=== PATIENT | female | born 1950 | race Caucasian/White ===

== ENCOUNTER 2024-04-07 13:20 | Inpatient (IN) | payer MEDICARE, OTHER ==
[~2024-04-07] VITALS: Ht 160 cm; Wt 65.9 kg
[2024-04-07 13:43] LABS: BASO % 0.4 % (0.0-2.0); EOS # 0.3 K/mm3 (0.0-0.7); EOS % 3.5 % (0.0-4.0); GRAN # 4.9 K/mm3 (1.4-6.5); HEMATOCRIT 40.2 % (37.0-47.0); HEMOGLOBIN 13.2 g/dl (12.5-16.0); LYMPH # 1.4 K/mm3 (1.2-3.4); LYMPH % 19.3 % (20.0-51.0); MEAN CELL VOLUME 100 fl (80.0-100.0); MEAN CORPUSCULAR HEMOGLOBIN 33 pg (27-31); MEAN CORPUSCULAR HGB CONC 33 g/dl (33.0-37.0); MEAN PLATELET VOLUME 9.7 fl (7.4-10.4); MONO # 0.8 K/mm3 (0.1-0.6); MONO % 10.5 % (1.7-9.3); PLATELET COUNT 233 K/mm3 (130-400); RED BLOOD COUNT 4.02 M/mm3 (4.10-5.30); REDCELL DISTRIBUTION WIDTH-CV 12.1 % (11.5-14.5)
[2024-04-07 13:59] LABS: ALBUMIN 3.6 g/dL (3.4-4.8); BILIRUBIN,TOTAL 0.5 mg/dL (0.2-1.2); CREATININE, serum 0.91 mg/dL (0.57-1.11)
[2024-04-07 14:12] LABS: PROTHROMBIN TIME 10.7 SECONDS (9.7-12.8)
[2024-04-07] MEDS ORDERED: Iohexol 300 - 100 ML VIAL IV ONE (14:39)
[2024-04-07] MEDS ORDERED: NS 100 ML IV ONE (14:40)
[2024-04-07 14:55] LABS: COLLECTION METHOD CATHETER; URINE APPEARANCE Clear (CLEAR/HAZY); URINE COLOR YELLOW (YELLOW)
[2024-04-07 14:56] LABS: URINE BLOOD Negative (NEGATIVE); URINE GLUCOSE Negative (NEGATIVE); URINE KETONE Negative (NEGATIVE); URINE NITRATE Negative (NEGATIVE); URINE PROTEIN(semi-quant) Negative (NEGATIVE); URINE UROBILINOGEN 0.2 E.U/dL (0.2-1.0)
[2024-04-07] MEDS ORDERED: Ondansetron 4 MG/2 ML VIAL IV ONE (15:30)
[2024-04-07] MEDS ORDERED: Morphine 4 MG/ML VIAL IV ONE (15:30)
[2024-04-07] MEDS ORDERED: TOPROL XL 50MG50 MG PO (15:38)
[2024-04-07] MEDS ORDERED: CYMBALTA 30MG30 MG PO (15:38)
[2024-04-07] MEDS ORDERED: ZOCOR 20MG20 MG PO (15:38)
[2024-04-07] MEDS ORDERED: PROTONIX 40MG T40 MG PO (15:38)
[2024-04-07] MEDS ORDERED: ATARAX 25MG25 MG/TAB PO (15:39)
[2024-04-07] MEDS ORDERED: VITAMIN E 400 U4001 PO (15:39)
[2024-04-07] MEDS ORDERED: CARAFATE 1GM1 G PO (15:39)
[2024-04-07] MEDS ORDERED: NATURAL MAGNES200 MG PO (15:40)
[2024-04-07] MEDS ORDERED: CALTRATE-600 W600 MG PO (15:40)
[2024-04-07] MEDS ORDERED: VITAMIND3 5000 PO (15:40)
[2024-04-07] MEDS ORDERED: EYE VITAMIN PO (15:41)
[2024-04-07] MEDS ORDERED: D5 1/2 NS 1,000 ML IV SCH (16:00)
[2024-04-07] MEDS ORDERED: Morphine 4 MG/ML VIAL IV PRN (16:00)
[2024-04-07] MEDS ORDERED: Naloxone 0.4 MG/ML VIAL IV PRN (16:00)
[2024-04-07] MEDS ORDERED: Ondansetron 4 MG/2 ML VIAL IV PRN (16:00)
[2024-04-07] MEDS ORDERED: oxyCODONE 5 MG TAB PO PRN (16:00)
[2024-04-07] MEDS ORDERED: Sucralfate 1 G TAB PO SCH (16:30)
[2024-04-07] MEDS ORDERED: Acetaminophen 500 MG TAB PO SCH (16:45)
[2024-04-07] MEDS ORDERED: hydrALAZINE 20 MG/ML 1 ML VIAL IV PRN (16:45)
--- NOTE | 2024-04-07 16:50 | NUR ---
PATIENT ADMITED INTO ROOM 344 FROM ER WITH RIGHT HIP FX. PATIENT TRANSFERED VIA SLIDE BOARD, ON BEDREST. ER GAVE PAIN & ANTINAUSEA MEDS BEFORE TRANSFER TO FLOOR. TEDS & SCD'S TO LLE. SCHWARTZ TO DD WITH MOD AMOUNTS OF CLEAR YELLOW URINE. LEFT AC IV TO INT. NO C/O N/V. HEAD TO TOE ASSESSMENT COMPLETE. NOTED A FEW SMALL ABRASION/BRUISES FROM FALL, SEE SHIFT ASSESSMENT. PATIENT'S AT BEDSIDE. ORIENTED TO ROOM. CALL LIGHT IN REACH. BED ALARM ON.
[2024-04-07] MEDS ORDERED: NS 1,000 ML IV SCH (17:30)
--- NOTE | 2024-04-07 17:35 | NUR ---
ORTHO AT BEDSIDE, SEE ORDERS/NOTES. PLAN IS FOR SURGERY TOMORROW AM IF CLEARED BY HOSPITALIST.
[2024-04-07 19:15] VITALS: BP 123/78; PULSE 80; TEMP 97.7
--- NOTE | 2024-04-07 20:15 | NUR ---
Patient assessed at this time, see shift assessment, A/Ox4, on oxygen at 1LPM via nasal cannula, still with IV infusing well on left forearm NS at 60cc/hr, MIGUEL's and SCD's on, reports minimal pain at this time and denies the need for pain meds at this time, NPO postmidnight instructed, denies further needs, call light and personal items within reach, will continue to monitor.
[2024-04-07 21:00] VITALS: BP_SYST 123
[2024-04-07] MEDS ORDERED: Docusate Sodium 100 MG CAP PO SCH (21:00)
[2024-04-07] MEDS ORDERED: Atorvastatin 10 MG TAB PO SCH (21:00)
--- NOTE | 2024-04-07 22:03 | NUR ---
Patient reports pain to right hip, PS of 7/10, medicated with oxycodone, denies further needs, will continue to monitor.
[2024-04-07 23:11] VITALS: BP 111/71; PULSE 74; TEMP 98
[2024-04-08] VITALS (17 sets, daily range): BP systolic 107–145; BP diastolic 40–83; PULSE 77–98; TEMP 97.1–98.5
[2024-04-08] MEDS ORDERED: LR 1,000 ML IV SCH (05:00)
--- NOTE | 2024-04-08 06:05 | NUR ---
Patient reports pain to her right hip, PS of 6/10, repositioned patient to her left side, medicated with IV morphine, NPO maintained, will continue to monitor.
[2024-04-08] MEDS ORDERED: fentaNYL 50 MCG/ML 2 ML VIAL ONE (07:28)
[2024-04-08] MEDS ORDERED: Lidocaine PF 2% (20 MG/ML) 5 ML VIAL ONE (07:30)
--- NOTE | 2024-04-08 07:30 | NUR ---
PATIENT OFF FLOOR AND IS NOW IN THE OR
[2024-04-08] MEDS ORDERED: dexAMETHasone 10 MG/ML VIAL ONE (07:31)
[2024-04-08] MEDS ORDERED: Ondansetron 4 MG/2 ML VIAL ONE (07:31)
[2024-04-08] MEDS ORDERED: NS 10 ML IV ONE (07:31)
[2024-04-08] MEDS ORDERED: Glycopyrrolate 0.2 MG/ML 1 ML VIAL ONE (07:31)
[2024-04-08] MEDS ORDERED: Lidocaine 1% w EPI (1:100,000) 20 ML Multi-Dose VIAL IJ ONE ×2 (08:20)
[2024-04-08] MEDS ORDERED: ePHEDrine 50 MG/ML VIAL ONE (08:25)
[2024-04-08] MEDS ORDERED: fentaNYL 50 MCG/ML 1 ML SYRINGE/VIAL [PACU/SDC ONLY] IV PRN (08:30)
[2024-04-08] MEDS ORDERED: HYDROmorphone 1 MG/1 ML SYRINGE [PACU/SDC ONLY] IV PRN (08:30)
[2024-04-08] MEDS ORDERED: droPERidol 2.5 MG/ML 2 ML VIAL IV PRN (08:30)
[2024-04-08] MEDS ORDERED: hydrALAZINE 20 MG/ML 1 ML VIAL IV PRN (08:30)
[2024-04-08] MEDS ORDERED: Ondansetron 4 MG/2 ML VIAL IV PRN (08:30)
[2024-04-08] MEDS ORDERED: Topical Skin Adhesive 1 EACH (1 ML) TOP ONE (08:51)
[2024-04-08] MEDS ORDERED: oxyCODONE 5 MG TAB PO PRN (09:00)
[2024-04-08] MEDS ORDERED: Polyethylene Glycol 3350 17 GM PDS PO SCH (09:00)
[2024-04-08] MEDS ORDERED: Magnes Hydrox (MOM) 80 MG/ML 30 ML CUP PO PRN (09:00)
[2024-04-08] MEDS ORDERED: Naloxone 0.4 MG/ML VIAL IV PRN (09:00)
[2024-04-08] MEDS ORDERED: DULoxetine 30 MG CAP PO SCH (09:00)
--- NOTE | 2024-04-08 09:45 | NUR ---
PATIENT BACK IN ROOM FROM OR. ORIENTED BUT VERY DROWSY. VSS. NO C/O PAIN OR NAUSEA. RIGHT HIP DSG IS CD&I WITH GAUZE & TEGADERM. TEDS & SCD'S TO BLE. ICE PACK TO RLE. SCHWARTZ TO DD WITH SMALL AMOUNTS OF CLEAR YELLOW URINE. IV FLUIDS INFUSING INTO LEFT AC IV. LIQUIDS AT BEDSIDE. HEAD TO TOE ASSESSMENT COMPLETE. AT BEDSIDE. PATIENT SLEEPING WITH NO OTHER NEEDS. CALL LIGHT IN REACH. BED ALARM ON.
--- NOTE | 2024-04-08 15:21 | NUR ---
SW met with patient to complete intake. Patient provides she resides in [facility] with spouse Dre Reid [phone] whom she appointed as DPOA/HC during intake. DPOA/HC documentation presented, reviewed, completed and witnessed for signature. Original document placed in patient's chart and copies provied to patient. Patient provides she is independent wi AdLs, did not utilize DME prior to hospitalization and does not utilize any home health services at this time. PCP is Dr. Thibodeaux, and pharmacy is [facility]. Patient provides she plans to return to her home upon DC. MARQUES will continue to follow. Discharge plan: home
[2024-04-08] MEDS ORDERED: ceFAZolin 1 G in Water For Injection,Sterile 10 ML IV SCH (19:30)
--- NOTE | 2024-04-08 19:51 | NUR ---
Patient assessed at this time, see shift assessment, reports pain is minimal, A/Ox4, dressing to right hip CDI, still with IV infusing well on left forearm, borges to dependent drainage, MIGUEL's and SCD's on, denies further needs, call light and personal items within reach, will continue to monitor.
[2024-04-08] MEDS ORDERED: Sennosides/Docusate 8.6-50 MG TAB PO SCH (21:00)
[2024-04-09] VITALS (13 sets, daily range): BP systolic 116–168; BP diastolic 72–78; PULSE 63–90; TEMP 97.7–98.2
--- NOTE | 2024-04-09 00:24 | NUR ---
Patient resting in bed, eyes closed, looks comfortable, respirations even and unlabored.
--- NOTE | 2024-04-09 02:07 | NUR ---
Called Shakeel, the DEBUG TECHNICIAN and made him aware that patient is eating and drinking fine, received an order to INT at this time.
--- NOTE | 2024-04-09 03:21 | NUR ---
Patient called with complaints of pain to right hip, medicated with oxycodone.
[2024-04-09 07:15] LABS: CALCIUM 8.5 mg/dL (8.4-10.2); CREATININE, serum 0.78 mg/dL (0.57-1.11); POTASSIUM 4.1 mEq/L (3.5-4.5)
[2024-04-09 07:29] LABS: BASO % 0.1 % (0.0-2.0); EOS % 0.1 % (0.0-4.0); GRAN # 13.4 K/mm3 (1.4-6.5); GRAN % 86.1 % (42.2-75.2); HEMOGLOBIN 11.6 g/dl (12.5-16.0); LYMPH % 6.4 % (20.0-51.0); MEAN CORPUSCULAR HEMOGLOBIN 33 pg (27-31); MEAN CORPUSCULAR HGB CONC 35 g/dl (33.0-37.0); MEAN PLATELET VOLUME 9.4 fl (7.4-10.4); MONO # 1.1 K/mm3 (0.1-0.6); MONO % 6.8 % (1.7-9.3); PLATELET COUNT 183 K/mm3 (130-400); RED BLOOD COUNT 3.53 M/mm3 (4.10-5.30); REDCELL DISTRIBUTION WIDTH-CV 11.9 % (11.5-14.5)
[2024-04-09 07:33] LABS: HEMATOCRIT 33.6 % (37.0-47.0); MEAN CELL VOLUME 95 fl (80.0-100.0)
--- NOTE | 2024-04-09 08:00 | NUR ---
Pt. sitting up in bed. Pt. is A&OX3, assessment complete. INT to lt. forearm patent. Dressing to rt. hip CDI. Pt. reports pain at a 6 on pain scale, giving pain meds. Pt. denies further needs, call light within reach.
[2024-04-09] MEDS ORDERED: Calcium Carbonate 500 MG TAB PO SCH (09:00)
[2024-04-09] MEDS ORDERED: Ascorbic Acid 500 MG TAB PO SCH (09:00)
--- NOTE | 2024-04-09 09:02 | NUR ---
SW attended clinical rounds with team. Attending Dr. Mercado stating patient is agreeable to [facility] referral. MARQUES called Christi, Director of I[facility] to make referral. Discharge plan: [facility] referral
[2024-04-09] MEDS ORDERED: NORCO 325 MG-101 TAB PO (10:36)
[2024-04-09] MEDS ORDERED: VALIUM 5MG T5 MG/TAB PO (10:37)
[2024-04-09] MEDS ORDERED: Multivitamin TAB PO SCH (12:00)
--- NOTE | 2024-04-09 21:34 | NUR ---
PT IN BED, REPOSITIONED UP IN BED WITH 2 STAFF. HS MEDS GIVEN INCLUDING OXYCODONE 5MG PO FOR RT RIB PAIN. DRSG'S TO RT HIP D/I, ICE PACK REPLACED. SCDS AND MIGUEL HOSE ON. HAS INT TO LAC, FLUSHES WELL. IS ALERT AND ORIENTED X4. HAS SMALL ABRASION TO LFA. SCHWARTZ TO BSD WITH YELLOW URINE. BED ALARM ON.
[2024-04-10 00:11] VITALS: BP_SYST 131
--- NOTE | 2024-04-10 03:43 | NUR ---
PT AWAKE, MEDICATED WITH OXYCODONE 5MG PO FOR RT HIP/RIB PAIN. REMAINS ON OXYGEN AT 2L/NC.
[2024-04-10 04:05] VITALS: BP 145/74; PULSE 68; TEMP 97.5
[2024-04-10 04:25] VITALS: BP_SYST 145
[2024-04-10 07:06] LABS: BASO # 0.1 K/mm3 (0.0-0.2); BASO % 0.5 % (0.0-2.0); EOS # 0.4 K/mm3 (0.0-0.7); EOS % 3.7 % (0.0-4.0); GRAN # 7.2 K/mm3 (1.4-6.5); GRAN % 67.7 % (42.2-75.2); HEMOGLOBIN 10.8 g/dl (12.5-16.0); MEAN CELL VOLUME 99 fl (80.0-100.0); MEAN CORPUSCULAR HEMOGLOBIN 33 pg (27-31); MEAN CORPUSCULAR HGB CONC 33 g/dl (33.0-37.0); MONO # 0.9 K/mm3 (0.1-0.6); MONO % 8.5 % (1.7-9.3); PLATELET COUNT 182 K/mm3 (130-400); RED BLOOD COUNT 3.31 M/mm3 (4.10-5.30); REDCELL DISTRIBUTION WIDTH-CV 12.2 % (11.5-14.5)
[2024-04-10 07:07] LABS: HEMATOCRIT 32.9 % (37.0-47.0)
[2024-04-10 07:26] VITALS: BP 140/70; PULSE 71; TEMP 97.6
[2024-04-10 07:28] LABS: CALCIUM 8.3 mg/dL (8.4-10.2); POTASSIUM 3.8 mEq/L (3.5-4.5)
[2024-04-10 07:42] LABS: CREATININE, serum 0.74 mg/dL (0.57-1.11)
--- NOTE | 2024-04-10 07:51 | NUR ---
Pt. sitting up in bed. Pt. is A&OX3, assessment complete. INT to lt. ac patent. Pt. reports pain to rt. ribs at a 6 on pain scale, gave pain meds. Dressing to rt. hip CDI. Pt. denies further needs, call light within reach.
[2024-04-10] MEDS ORDERED: ASPIRIN 81M81 MG/TA2 PO (09:01)
[2024-04-10 09:02] VITALS: BP_SYST 140
[2024-04-10] MEDS ORDERED: ROXICODONE 55 MG/TAB PO (09:02)
[2024-04-10] MEDS ORDERED: TYLENOL 500MG500 MG PO (09:02)
[2024-04-10] MEDS ORDERED: SENEXON-S 50-81 EACH PO (09:04)
[2024-04-10] MEDS ORDERED: LEADER CLE17 GM/Dose PO (09:04)
[2024-04-10] MEDS ORDERED: DUO-KAPS1 CAP PO (09:05)
[2024-04-10] MEDS ORDERED: VITAMIN C500 MG PO (09:05)
--- NOTE | 2024-04-10 10:09 | NUR ---
Pt. ready to discharge to I[facility]. INT discontinued from lt. ac. Pt. ambulated with 1 assist and walker to room 334.
--- NOTE | 2024-04-10 10:09 | NUR ---
SW attended clinical rounds with team. Patient stable for discharge to [facility] today. SW spoke with Sharonda with I[facility] to coordinate transfer. Discharge plan: [facility]
== END 2024-04-10 10:11 | DRG 481 ==
LOC: COL.ER 13:20 → SURG 15:52
PROVIDERS: Emergency Medicine; Orthopaedic Surgery; ADMIT Internal Medicine
PROC: 0QS634Z Reposition Right Upper Femur with Internal Fixation Device, Percutaneous Approach (ICD-10-PCS; principal; 2024-04-08 08:30)
DX: S72.011A Unspecified intracapsular fracture of right femur, initial encounter for closed fracture (principal); J98.11 Atelectasis; F41.9 Anxiety disorder, unspecified; F32.A Depression, unspecified; E78.5 Hyperlipidemia, unspecified; W01.0XXA Fall on same level from slipping, tripping and stumbling without subsequent striking against object, initial encounter; R91.8 Other nonspecific abnormal finding of lung field; D72.829 Elevated white blood cell count, unspecified; I10 Essential (primary) hypertension; Z90.49 Acquired absence of other specified parts of digestive tract; Z90.710 Acquired absence of both cervix and uterus; Z79.899 Other long term (current) drug therapy; Y92.89 Other specified places as the place of occurrence of the external cause; Y93.89 Activity, other specified; Z87.891 Personal history of nicotine dependence; Z91.040 Latex allergy status; Z87.19 Personal history of other diseases of the digestive system
CPT/HCPCS: A9284; C1713; J0690; J1100; J2270; J2405; J2704; J3010; J7030; Q9967

== ENCOUNTER 2024-04-10 09:12 | Inpatient (IN) | payer MEDICARE, OTHER ==
[~2024-04-10] VITALS: Ht 160 cm; Wt 60.1 kg
[~2024-04-10 09:12] MED LIST: ASPIRIN 81M81 MG/TA2 PO; ATARAX 25MG25 MG/TAB PO; CALTRATE-600 W600 MG PO; CARAFATE 1GM1 G PO; CYMBALTA 30MG30 MG PO; DUO-KAPS1 CAP PO; EYE VITAMIN PO; LEADER CLE17 GM/Dose PO; NATURAL MAGNES200 MG PO; NORCO 325 MG-101 TAB PO; PROTONIX 40MG T40 MG PO; ROXICODONE 55 MG/TAB PO; SENEXON-S 50-81 EACH PO; TOPROL XL 50MG50 MG PO; TYLENOL 500MG500 MG PO; VALIUM 5MG T5 MG/TAB PO; VITAMIN C500 MG PO; VITAMIN E 400 U4001 PO; VITAMIND3 5000 PO; ZOCOR 20MG20 MG PO
[2024-04-10] MEDS ORDERED: Acetaminophen 325 MG TAB PO PRN (10:30)
[2024-04-10] MEDS ORDERED: Docusate Sodium 100 MG CAP PO PRN (10:30)
[2024-04-10] MEDS ORDERED: Naloxone 0.4 MG/ML VIAL IV PRN (10:30)
[2024-04-10] MEDS ORDERED: oxyCODONE 5 MG TAB PO PRN (10:30)
[2024-04-10] MEDS ORDERED: Polyethylene Glycol 3350 17 GM PDS PO PRN (10:30)
[2024-04-10] MEDS ORDERED: Sennosides/Docusate 8.6-50 MG TAB PO PRN (10:30)
[2024-04-10] MEDS ORDERED: Lidocaine 4% Topical Patch TP SCH (10:30)
--- NOTE | 2024-04-10 11:33 | NUR ---
Pt. transfered from surgical unit. Pt. able to ambulate from surgical unit to room. Pt. is A&OX3, assessment complete. Pt. denies pain, call light within reach.
[2024-04-10] MEDS ORDERED: Sucralfate 1 G TAB PO SCH (11:54)
[2024-04-10] MEDS ORDERED: Multivitamin TAB PO SCH (12:00)
[2024-04-10] MEDS ORDERED: Acetaminophen 500 MG TAB PO PRN (12:00)
[2024-04-10 17:00] VITALS: BP_SYST 161
[2024-04-10 17:23] VITALS: BP 161/80; PULSE 64; TEMP 97.9
[2024-04-10 19:25] VITALS: BP_SYST 161
--- NOTE | 2024-04-10 19:27 | NUR ---
BEDSIDE SHIFT REPORT RECEIVED. SHIFT ASSESSMENT COMPLETED AT THIS TIME. PT REPORTS 02/05 PAIN. PRN TYELNOL ADMINISTERED AT THIS TIME ALONG WITH SCHEDUELED EVENING MEDICATIONS WITHOUT COMPLICATIONS. PT DENIES NAUSEA AND SOB AT THIS TIME. PT A&OX4. FALL PRECAUTIONS IN PLACE. CALL LIGHT WITHIN REACH. NO FURTHER NEEDS AT THIS TIME.
[2024-04-10] MEDS ORDERED: Calcium Carb/Vit D3 500 mg-200 Units TAB PO SCH (21:00)
[2024-04-10] MEDS ORDERED: Simvastatin 20 MG **** subs to Atorvastatin 10 MG PO SCH (21:00)
[2024-04-10] MEDS ORDERED: Atorvastatin 10 MG TAB PO SCH (21:00)
[2024-04-10] MEDS ORDERED: Sennosides/Docusate 8.6-50 MG TAB PO SCH (21:00)
--- NOTE | 2024-04-10 21:56 | NUR ---
PT FOUND ON RA SATTING 80-83%. PT SHALLOW BREATHING. RT APPLIED 4L NC AND EDUCATED PT ON DEEP BREATHING. PT NOW SATTING 94% ON 4L NC. RN NOTIFIED.
--- NOTE | 2024-04-10 21:58 | NUR ---
THIS NURSE NOTIFIED BY RT THAT PATIENT WAS FOUND SATING AT 80%. RT APPLIED 4L OF OXYGEN AT SATS WERE NOW 94%. THIS NURSE ASSESSED PT AND PT VOICED 7/10 PAIN. PRN ROXICODONE ADMINISTERED AT THIS TIME. PT STIL ON 4L/NC. NO FURTHER NEEDS AT THIS TIME.
--- NOTE | 2024-04-10 22:53 | NUR ---
PT CALLED AND REPORTS 7/10 PAIN STILL LOCATED IN THE RIGHT HIP AND RIBS. ANOTHER DOSE OF PRN ROXICODONE ADMINISTERED. TITRATED O2 TO 2L/NC AND PT IS SATING AT 97%. WILL CONINUE TO MONITOR. NO FURTHER NEEDS AT THIS TIME.
[2024-04-11 01:05] VITALS: BP_SYST 161
[2024-04-11 05:26] VITALS: BP 169/82; PULSE 71; TEMP 98
[2024-04-11] MEDS ORDERED: Magnesium Oxide 400 MG TAB PO SCH (09:00)
[2024-04-11] MEDS ORDERED: Polyethylene Glycol 3350 17 GM PDS PO SCH (09:00)
[2024-04-11] MEDS ORDERED: Ascorbic Acid 500 MG TAB PO SCH (09:00)
[2024-04-11] MEDS ORDERED: Cholecalciferol (Vit D3) 5000 Units Capsule PO SCH (09:00)
[2024-04-11] MEDS ORDERED: D-Alpha Tocopheryl (Vitamin E) 400 Units (180 mg) CAP PO SCH (09:00)
[2024-04-11] MEDS ORDERED: DULoxetine 30 MG CAP PO SCH (09:00)
[2024-04-11 10:02] VITALS: BP_SYST 169
--- NOTE | 2024-04-11 10:07 | NUR ---
PT ASSESSMENT COMPLETED EARLIER TODAY. SHE WAS SITTING IN THE CHAIR EATING HER BREAKFAST. MEDICATIONS ADMINISTERED PER EMAR. CALL LIGHT WITHIN REACH. NO OTHER CONCERNS AT THIS TIME. ALL OTHER NEEDS MET
--- NOTE | 2024-04-11 12:20 | NUR ---
SW met with patient earlier to complete initial assessment for discharge planning. Patient verified that she lives in [place] with her /BRANDEE Erickson ([phone]). She sees Dr. Jorge Hale as her PCP and uses [facility]. Patient states she has a FWW, quad cane and grab bars at home. She reports that there are 5 steps with rail into house at front door and 2 steps into house at side door. She states there is one step into their garage from the house. SW discussed possible discharge plans including home health or OP therapy. SW will continue to follow for discharge planning. Discharge plan: TBD
[2024-04-11 13:16] VITALS: BP_SYST 169
--- NOTE | 2024-04-11 13:17 | NUR ---
SW met with patient to provide copy of team conference notes and discuss discharge needs. Patient informed that team feels she may be ready for discharge next week with date of discharge set for 04/20. Family meeting scheduled with patient on 04/18 at 1015 and written on white board in room. Medicare.gov list of HH providers left for patient to review. SW will follow up for choice of HH provider. Discharge plan: Home with HH
[2024-04-11 17:20] VITALS: BP_SYST 169
[2024-04-11 18:11] VITALS: BP 176/84; PULSE 90; TEMP 98.1
--- NOTE | 2024-04-11 21:53 | NUR ---
Pt sitting in bed watching a movie upon this nurse's entry to room. A&Ox4. RR even and unlabored. No acute distress noted. Scheduled PM medications and PRN oxycodone administered per pt request. Pt experiencing pain to right hip and right lower back. Shift assessment completed. Dark purple ecchymosis noted to right lower back and scattered on RUE. Pulses present and palpable. Gait is steady w/ use of walker and gait belt. Pt denies any needs or concerns. Call light in reach. Care ongoing.
[2024-04-12 06:14] VITALS: BP 158/77; PULSE 65; TEMP 98.6
[2024-04-12 07:20] VITALS: BP_SYST 158
--- NOTE | 2024-04-12 08:00 | NUR ---
Pt. sitting up in bed. Pt. is finished with breakfast. Pt. assisted to the bathroom with 1 assist, gait belt and walker. Pt. then up to sink go preform oral hygiene. Pt. then to chair. Pt. is A&OX3, assessment complete. Pt. reports pain at a 4 on pain scale, giving Tylenol. Lidocaine patch applied to rt. ribs. Pt. denies further needs, call light within reach.
[2024-04-12 16:45] VITALS: BP 135/80; PULSE 80; TEMP 98
[2024-04-12 19:30] VITALS: BP_SYST 135
--- NOTE | 2024-04-12 20:30 | NUR ---
UPON SHIFT ASSESSMENT, PATIENT WAS IN BED LYING ON LT SIDE WATCHING TV ON HER TABLET. SHE IS AXO X4 AND VS ARE WNL. PATIENT C/O 4/10 PAIN "AND GETTING WORSE." RT HIP INSCISION SITE IS CDI AND DISTAL PULSES, CAP REFILL, SENSATION AND COLOR GOOD-MINIMAL EDEMA. CALL LIGTH WITHIN REACH, BEDALARM ON.
--- NOTE | 2024-04-13 03:04 | NUR ---
PATIENT SLEEPING ON RT SIDE. NO SIGNS OF DISTRESS.
[2024-04-13 05:36] VITALS: BP 138/74; PULSE 70; TEMP 98.1
[2024-04-13 06:38] LABS: BASO % 0.4 % (0.0-2.0); EOS # 0.5 K/mm3 (0.0-0.7); EOS % 4.4 % (0.0-4.0); GRAN # 7.8 K/mm3 (1.4-6.5); GRAN % 71.2 % (42.2-75.2); HEMOGLOBIN 11.5 g/dl (12.5-16.0); LYMPH # 1.6 K/mm3 (1.2-3.4); LYMPH % 14.8 % (20.0-51.0); MEAN CELL VOLUME 98 fl (80.0-100.0); MEAN CORPUSCULAR HEMOGLOBIN 32 pg (27-31); MEAN CORPUSCULAR HGB CONC 33 g/dl (33.0-37.0); MEAN PLATELET VOLUME 9.9 fl (7.4-10.4); MONO # 0.9 K/mm3 (0.1-0.6); MONO % 8.5 % (1.7-9.3); PLATELET COUNT 241 K/mm3 (130-400); RED BLOOD COUNT 3.56 M/mm3 (4.10-5.30); REDCELL DISTRIBUTION WIDTH-CV 11.9 % (11.5-14.5)
[2024-04-13 07:00] VITALS: BP_SYST 138
[2024-04-13 07:08] LABS: CALCIUM 9.2 mg/dL (8.4-10.2); CREATININE, serum 0.77 mg/dL (0.57-1.11); POTASSIUM 4.2 mEq/L (3.5-4.5)
--- NOTE | 2024-04-13 08:00 | NUR ---
PATIENT A&O X4. VSS. PRN PAIN MEDICATION ADMINISTERED FOR C/O PAIN IN R HIP. NO C/O N/V. PATIENT EATING BREAKFAST. PATIENT IS ASSIST X1 WITH GAIT BELT AND WALKER. DRESSING TO R HIP IS CLEAN, DRY, AND INTACT. FALL PRECAUTIONS IN PLACE. SHIFT ASSESSMENT DONE. MORNING MEDICATIONS ADMINISTERED. NO FURTHER NEEDS AT THIS TIME. CALL LIGHT WITHIN REACH.
--- NOTE | 2024-04-13 13:42 | NUR ---
SW met with pt to check-in and see if there were any needs. She only voiced some pain in her hip and ribs which was reported to Dr. Lewis. No further needs. Discharge Plan: re-eval, home 04/20
--- NOTE | 2024-04-13 14:30 | NUR ---
Admission QIM scores were reviewed by the team. Code of 4 chosen for putting on/taking off footwear was determined by team discussion to be the most usual performance before interventions for this patient during the assessment period. Code of 3 chosen for lying to sitting side of bed was determined by team discussion to be the most usual performance before interventions for this patient during the assessment period.--Cely Granger, PD
[2024-04-13 17:01] VITALS: BP 132/80; PULSE 66; TEMP 98
[2024-04-13 19:00] VITALS: BP_SYST 132
[2024-04-14 04:47] VITALS: BP 127/66; PULSE 67; TEMP 97.9
[2024-04-14 06:58] VITALS: BP_SYST 127
--- NOTE | 2024-04-14 08:43 | NUR ---
PT RESTING IN BED, ALERT AND ORIENTEDX4. RATES PAIN 3/10 IN THE RIGHT HIP AND RIBS. REEQUESTED PAIN PILL BEFORE GETTING UP WITH THERAPY. ASSESSED PT. SARAH DRESSING TO RIGHT HIP INTACT WITH TEGADERM. BRUISING AROUND RIGHT RIBS AND HIP. NO OTHER COMPLAINTS AT THIS TIME. CALL LIGHT WITHIN REACH.
[2024-04-14] MEDS ORDERED: Albuterol/Ipratropium 3 MG-0.5 MG/3 ML Neb Soln IH PRN (13:00)
[2024-04-14 17:00] VITALS: BP 134/76; PULSE 78; TEMP 98.2
[2024-04-14 19:03] VITALS: BP_SYST 134
[2024-04-15 05:36] VITALS: BP 124/72; PULSE 55; TEMP 98
[2024-04-15 06:33] VITALS: BP_SYST 124
--- NOTE | 2024-04-15 07:15 | NUR ---
PT RESTING IN BED, ALERT AND ORIENTEDX4. RATES PAIN 3/10 IN THE RIGHT HIP AND RIBS, THIS IS TOLERABLE FOR PT. ASSESSED PT. SOME BRUISING ON RIGHT SIDE. GAVE MORNING MEDS. PUT LIDOCAIN PATCH ON RIGHT RIBS. NO OTHER COMPLAINTS AT THIS TIME. CALL LIGHT WITHIN REACH.
[2024-04-15 17:40] VITALS: BP 168/88; PULSE 79; TEMP 98.6
[2024-04-15 18:43] VITALS: BP_SYST 168
[2024-04-16 05:51] VITALS: BP 125/71; PULSE 72; TEMP 98
[2024-04-16 08:35] VITALS: BP_SYST 125
[2024-04-16 09:25] LABS: COLLECTION METHOD CLEAN CATCH
[2024-04-16 09:33] LABS: PH 5.5 (5.0-8.5); URINE APPEARANCE CLOUDY (CLEAR/HAZY); URINE BLOOD 2+ (NEGATIVE); URINE COLOR YELLOW (YELLOW); URINE GLUCOSE NEGATIVE (NEGATIVE); URINE KETONE NEGATIVE (NEGATIVE); URINE NITRATE NEGATIVE (NEGATIVE); URINE PROTEIN(semi-quant) 1+ (NEGATIVE); URINE UROBILINOGEN 0.2 E.U/dL (0.2-1.0)
[2024-04-16] MEDS ORDERED: Cefuroxime 250 MG TAB PO SCH (12:30)
[2024-04-16 17:12] VITALS: BP 130/59; PULSE 77; TEMP 98.3
--- NOTE | 2024-04-16 19:19 | NUR ---
RECEIVED CHANGE OF SHIFT REPORT FROM DAY SHIFT NURSE. PATIENT RESTING IN BED, NO NEEDS REPORTED AT TIME OF REPORT.
[2024-04-16 19:20] VITALS: BP_SYST 130
--- NOTE | 2024-04-16 20:00 | NUR ---
MOVEMENT TO RLE DUE TO SURGERY. DENIES CHEST PAIN/SHORTNESS OF BREATHE/NAUSEA AT THIS TIME. DENIES PRODUCTIVE COUGH OR NUMBNESS/TINGLING TO EXTREMITIES AT THIS TIME.
[2024-04-17 05:44] VITALS: BP 124/67; PULSE 68; TEMP 98.1
--- NOTE | 2024-04-17 07:15 | NUR ---
CHANGE OF SHIFT REPORT GIVEN TO DAY SHIFT NURSEJUAN.
[2024-04-17 09:31] VITALS: BP_SYST 124
--- NOTE | 2024-04-17 10:51 | NUR ---
PT WAS SITTING IN HER BED, I ORDERED BREAKFAST FOR HER. SHE IS ON THE PHONE WITH HER . SHE STATES THAT SHE HAS "FELT BETTER THAN SHE EVER HAS SINCE SHE HAS ARRIVED IN THE HOSPITAL". ASSESSMENT COMPLETED EARLIER IN THE AM. MEDICATIONS ADMINISTERED PER EMAR. PT STATES THAT HER PAIN IS UNDER CONTROL THIS MORNING. CALL LIGHT WITHIN REACH, NO OTHER COMPLAINTS AT THIS TIME.
--- NOTE | 2024-04-17 10:59 | NUR ---
PATIENT ALERT AND ORIENTED X4. VSS. PATIENT HERE REHAB S/P RIGHT HIP FRACTURE. DRESSING CDI. PATIENT DENIES ANY PAIN THIS AM. PATIENT ON RA. PATIENT IN BED, WAITING ON BREAKFAST. NO FURTHER NEEDS. CALL LIGHT IN REACH. BED ALARM ON.
--- NOTE | 2024-04-17 13:15 | NUR ---
SW met with patient briefly to check in. Patient denies any needs at this time. Family meeting is scheduled for 04/18 at 1015 with discharge planned for 04/20.
--- NOTE | 2024-04-17 13:49 | NUR ---
The Interdisciplinary team discussed making the patient Modified Independent in her room during Huddle. Her current Pack Fall Score is high at 65 as nursing documented. Her Tinetti score was low at 24. She is currently using a walker w/ wheels for mobility & self care & demonstrates good safety awareness. The team feels she is capable of being Modified Independent in her room at this time as she is aware of her deficits/limitations & cognitively able to problem solve her situations.--Cely Granger, PD
[2024-04-17 16:45] VITALS: BP 157/77; PULSE 80; TEMP 97.9
[2024-04-17 19:00] VITALS: BP_SYST 157
--- NOTE | 2024-04-17 22:06 | NUR ---
Patient assessed at this time, see shift assessment, A/Ox4, reports pain to right hip PS of 6/10 and right rib with PS of 5/10, medicated with oxycodone, see emar for details, denies further needs, call light and personal items within reach, will continue to monitor.
[2024-04-18 05:42] VITALS: BP 165/80; PULSE 67; TEMP 97.8
[2024-04-18 06:11] VITALS: BP 131/79
[2024-04-18 07:00] VITALS: BP_SYST 131
--- NOTE | 2024-04-18 08:00 | NUR ---
PATIENT A&O X4. VSS. NO C/O PAIN OR N/V. PATIENT IS INDEPENDENT IN ROOM. R HIP INCISION IS OPEN TO AIR AND EDGES ARE WELL APPROXIMATED. PATIENT EATING BREAKFAST. SHIFT ASSESSMENT COMPLETE AND MORNING MEDICATIONS ADMINISTERED. NO FURTHER NEEDS AT THIS TIME. CALL LIGHT WITHIN REACH.
--- NOTE | 2024-04-18 12:31 | NUR ---
SW attended clincial team conference earlier this morning. Team discussed patient's progress with therapy. Team feels patient is ready for discharge. SW attended family meeting with team, patient, and daughter. Updated patient and family on progress and discussed preparations for discharge on 04/19. Patient will discharge to home with HH and does not require additional DME. Discharge plan: Home with
[2024-04-18 18:21] VITALS: BP 175/75; PULSE 87; TEMP 98.2
--- NOTE | 2024-04-18 19:00 | NUR ---
RECEIVED CHANGE OF SHIFT REPORT FROM DAY SHIFT NURSE.
--- NOTE | 2024-04-18 19:00 | NUR ---
PATIENT UP IN ROOM INDEPENDENTLY, ANTICIPATE DISCHARGE TO HOME TOMORROW.
[2024-04-18 20:00] VITALS: BP_SYST 175
--- NOTE | 2024-04-18 20:00 | NUR ---
PATIENT DENIES ANY NEEDS OR CONCERNS. UP PER SELF INDEPENDENTLY IN ROOM USING FWW WITH NO REPORTED CONCERNS/PROBLEMS. DECREASED ROM/STRENGTH TO RLE DUE TO SURGERY, DENIES NUMBNESS/TINGLING TO EXTREMITIES WELL CHEST PAIN/NAUSEA/SHORTNESS OF BREATH CURRENTLY.
[2024-04-19 05:47] VITALS: BP 148/68; PULSE 71; TEMP 98
--- NOTE | 2024-04-19 07:00 | NUR ---
CHANGE OF SHIFT REPORT GIVEN TO DAY SHIFT NURSEDEWAYNE. PATIENT DENIES ANY NEEDS THIS AM. EXIT ALARM ON WHEN IN BED OR UP IN CHAIR. SLEPT MOST OF NIGHT WITH NO CONCERNS REPORTED DURING THE SHIFT.
[2024-04-19 07:12] VITALS: BP_SYST 148
--- NOTE | 2024-04-19 08:30 | NUR ---
pt a&ox4 sitting on the side of the bed. vss. pt rates pain a 6/10 on the right side of her ribs, roxicodone given per emar. otherwise pt doing well and ready for discharge. no needs at this time.
[2024-04-19] MEDS ORDERED: ASPIRIN 81M81 MG/TA2 PO (09:07)
[2024-04-19] MEDS ORDERED: CEFTIN500 MG PO (09:07)
[2024-04-19] MEDS ORDERED: PROTONIX 40MG T40 MG PO (09:08)
[2024-04-19] MEDS ORDERED: MAG-OX 400400 MG/TAB PO (09:08)
[2024-04-19] MEDS ORDERED: BLUE-EMU LIDOC1 EACH TP (09:09)
[2024-04-19] MEDS ORDERED: ROXICODONE 55 MG/TAB PO (09:09)
[2024-04-19] MEDS ORDERED: DUO-KAPS1 CAP PO (09:09)
[2024-04-19] MEDS ORDERED: VITAMIN C500 MG PO (09:09)
--- NOTE | 2024-04-19 10:06 | NUR ---
hide mill worker met with pt to check-in prior to discharge today. She reports being nervous and happy to go home. SW went on IM from medicare and pt signed and verbalized understanding. Copy provided and original in chart. SW advised HH will call her to get scheduled. MARQUES faxed discharge orders to [facility]. Discharge Plan: home with [facility]
--- NOTE | 2024-04-19 10:30 | NUR ---
discharge instructions given to pt and , all questions answered. pt escorted to personal vehicle by wheelchair.
== END 2024-04-19 10:30 | disposition home health service (06) | DRG 560 ==
PROVIDERS: Physician Assistant; ADMIT Physical Medicine & Rehabilitation Sports Medicine
DX: S72.011D Unspecified intracapsular fracture of right femur, subsequent encounter for closed fracture with routine healing (principal); N39.0 Urinary tract infection, site not specified; R26.89 Other abnormalities of gait and mobility; F32.A Depression, unspecified; F41.9 Anxiety disorder, unspecified; K59.00 Constipation, unspecified; K21.9 Gastro-esophageal reflux disease without esophagitis; R07.89 Other chest pain; R09.02 Hypoxemia; D64.89 Other specified anemias; R91.1 Solitary pulmonary nodule; I10 Essential (primary) hypertension; E78.5 Hyperlipidemia, unspecified; W01.198D Fall on same level from slipping, tripping and stumbling with subsequent striking against other object, subsequent encounter; Z79.82 Long term (current) use of aspirin; Z79.891 Long term (current) use of opiate analgesic; Z87.891 Personal history of nicotine dependence; Z79.899 Other long term (current) drug therapy; Z74.09 Other reduced mobility; B96.20 Unspecified Escherichia coli [E. coli] as the cause of diseases classified elsewhere
CPT/HCPCS: A9284